=== PATIENT | male | born 1945 | race Caucasian/White ===

== ENCOUNTER 2018-07-25 11:51 | Day surgery (SDC) | payer MEDICARE ==
[2018-07-24 11:18] VITALS: BMI 29.0
[~2018-07-25 11:51] MED LIST: LACTATED RINGERS 1,000 ML IV SCH
[2018-07-25 12:23] VITALS: RESP 16; TEMP 98.2
[2018-07-25] MEDS ORDERED: LIDOCAINE 1% 20 ML VIAL (10MG/ML) FOR IV START INTRADERMA ONE (12:28)
[2018-07-25] MEDS ORDERED: PROPOFOL 10 MG/ML 20 ML VIAL IV ONE (12:45)
--- NOTE | 2018-07-25 13:05 | P.PCN ---
Date of Procedure: 07/25/18 Procedure(s) Performed: BRIEF HISTORY: Patient is a 73-year-old, pleasant, white male, scheduled for an upper endoscopy as a part of evaluation of anemia. Patient was recently started on aspirin and Plavix prior to which she wasn't willing to for 14 months. He was noted to have anemia and hence he scheduled for an upper endoscopy to evaluate further. Last EGD in October 2017 revealed small gastric ulcer. He denies any recent NSAID use. He has been on Protonix 40 mg daily.. PROCEDURE PERFORMED: Esophagogastroduodenoscopy with biopsy . PREOPERATIVE DIAGNOSIS: Meat. IV sedation per anesthesia. PROCEDURE: After informed consent was obtained, the patient was brought into the endoscopy unit. IV sedation was administered by Anesthesia under continuous monitoring. Initially the Olympus GIF-140 video endoscope was inserted into the mouth. Esophagus intubated without any difficulty. It was gradually advanced into the stomach and duodenum and carefully examined. The bulb and the second part of the duodenum appeared normal. The scope at this time was withdrawn to the stomach, adequately insufflated with air, and upon careful examination, mucosa of the antrum, had of 1 minute a superficial antral ulcer with antral gastritis and biopsies were done from this area. The body, cardia and the fundus appeared normal. The scope was then withdrawn into the esophagus. The GE junction was located at 39 cm from the incisors. The esophagus appeared normal. There were no erosions or ulcerations seen and the patient tolerated the procedure well. IMPRESSION: 1. 1 cm superficial antral ulcer with antral gastritis. 2. No evidence of esophagitis. RECOMMENDATIONS: The findings of this examination were discussed with the patient as well as his family. He was advised to follow with the biopsy results. He was advised to increase to 40 mg twice daily for 8 weeks and will plan a repeat upper endoscopy in 3 months.
[2018-07-25 13:27] VITALS: BP 143/75; PULSE 78
== END 2018-07-25 13:38 | disposition home or self-care (01) ==
LOC: ORWHC2ENDO 11:51
PROVIDERS: ATTEND Internal Medicine Gastroenterology
DX: K29.50 Unspecified chronic gastritis without bleeding (principal); K25.9 Gastric ulcer, unspecified as acute or chronic, without hemorrhage or perforation; D64.9 Anemia, unspecified; I10 Essential (primary) hypertension; I25.10 Atherosclerotic heart disease of native coronary artery without angina pectoris; E78.5 Hyperlipidemia, unspecified; K21.9 Gastro-esophageal reflux disease without esophagitis; Z79.02 Long term (current) use of antithrombotics/antiplatelets; Z79.82 Long term (current) use of aspirin; Z79.899 Other long term (current) drug therapy; Z95.5 Presence of coronary angioplasty implant and graft; Z79.891 Long term (current) use of opiate analgesic
CPT/HCPCS: 88305; 43239; J2704

== ENCOUNTER 2020-03-16 09:51 | Day surgery (SDC) | payer MEDICARE ==
[2020-03-11 08:42] VITALS: BMI 27.1
[~2020-03-16 09:51] MED LIST changes: +DEXAMETHASONE SOD PHOSPHATE 4 MG/ML 1 ML VIAL IV ONE; +FAMOTIDINE 20 MG/2 ML VIAL IV PRN; +HYDROmorphone 0.5 MG/0.5 ML SYRINGE IVP PRN; +ONDANSETRON 4 MG/2 ML VIAL IVP ONE; +ONDANSETRON 4 MG/2 ML VIAL IVP PRN; +metroNIDAZOLE-NS PMX 500 MG in SALINE 1 100ML.BAG IVPB PRN
[2020-03-16] MEDS ORDERED: LIDOCAINE 1% (10MG/ML) FOR IV START INTRADERMA ONE (10:35)
[2020-03-16] MEDS ORDERED: PHENYLEPHRINE 10 MG/ML VIAL ONE (10:41)
[2020-03-16] MEDS ORDERED: fentaNYL (PF) 50 MCG/ML 2 ML AMP ONE (10:41)
[2020-03-16] MEDS ORDERED: SUCCINYLCHOLINE CHLORIDE 100 MG/5 ML SYR IV ONE (10:41)
[2020-03-16] MEDS ORDERED: PROPOFOL 10 MG/ML 20 ML VIAL IV ONE (10:41)
[2020-03-16] MEDS ORDERED: ePHEDrine SULFATE/0.9% NACL/PF 50 MG/5 ML SYRINGE IV ONE (10:41)
[2020-03-16] MEDS ORDERED: LIDOCAINE 1% INJ 10MG/ML (20 ML MDV) ONE (10:41)
[2020-03-16] MEDS ORDERED: MIDAZOLAM 2 MG/2 ML VIAL ONE (10:41)
[2020-03-16] MEDS ORDERED: LIDOCAINE 1%-EPI 1:100,000 20 ML VIAL SQ ONE (11:11)
[2020-03-16] MEDS ORDERED: LACTATED RINGERS 1,000 ML IV ONE ×2 (11:55)
[2020-03-16] MEDS ORDERED: BACITRACIN ZINC 500 UNIT/GM OINT 28.4 GM TUBE TOPICAL ONE (12:08)
--- NOTE | 2020-03-16 12:23 | P.OP ---
Date of Procedure: 03/16/20 Preoperative Diagnosis: Left mosque skin lesion Postoperative Diagnosis: Same Procedure(s) Performed: Excision left mosque skin lesion 1.5 x 1.7 cm Local flap reconstruction left mosque defect with primary defect 1.5 x 1.7 cm and secondary defect to 2.0 x 2.3 cm Anesthesia: AVE Surgeon: Ashok Reyes Estimated Blood Loss (ml): 4 Pathology: other (Left mosque skin lesion) Condition: stable Disposition: PACU Indications for Procedure: This 74-year-old white male with a slowly enlarging left mosque skin lesion Operative Findings: Erythematous nodular skin lesion left mosque adjacent to the hairline-this is a basal cell carcinoma with negative margins on frozen section Description of Procedure: Patient was brought in the operative suite and placed in a supine position. Patient underwent induction of general anesthesia with oral endotracheal intubation without difficulty. The patient was prepped and draped using aseptic fashion. 1% lidocaine with 1 1000 epinephrine was infused subcutaneously and field block fashion. This was left to work for 7 minutes vasoconstrictive effect. The lesion was then excised from the surrounding tissue grossly entirely down to the muscular layer. This was sent for frozen section and this returned as negative margins and a basal cell carcinoma. The edges of the wound are undermined. Primary closure was not an option due to the fact that this would distort the normal tissues surrounding area and therefore a rhomboid flap was designed with the base posteriorly and therefore the fold from inferiorly. This was raised and rotated and advanced into position. The closure of the primary and secondary defects were performed with inverted interrupted 5-0 Vicryl suture and skin closed with running locking and simple interrupted 5-0 Prolene suture. Bacitracin ointment and sterile dressing was placed. The skin flap had 100% take and excellent capillary refill. The patient was then allowed to emerge from general anesthesia having tolerated procedure well was extubated in the operating suite and transferred to postop recovery area in satisfactory condition.
[2020-03-16 12:25] VITALS: TEMP 97.6
[2020-03-16 13:20] VITALS: BP 156/70; PULSE 82; RESP 16
== END 2020-03-16 13:38 | disposition home or self-care (01) ==
LOC: OR 09:51
PROVIDERS: ATTEND Otolaryngology
DX: C44.319 Basal cell carcinoma of skin of other parts of face (principal); I25.10 Atherosclerotic heart disease of native coronary artery without angina pectoris; I10 Essential (primary) hypertension; E78.5 Hyperlipidemia, unspecified; K21.9 Gastro-esophageal reflux disease without esophagitis; Z87.891 Personal history of nicotine dependence; Z79.899 Other long term (current) drug therapy; Z79.891 Long term (current) use of opiate analgesic; Z79.82 Long term (current) use of aspirin; Z95.5 Presence of coronary angioplasty implant and graft; Z96.60 Presence of unspecified orthopedic joint implant; Z82.49 Family history of ischemic heart disease and other diseases of the circulatory system; Z80.3 Family history of malignant neoplasm of breast; Z80.0 Family history of malignant neoplasm of digestive organs
CPT/HCPCS: 88305; 88331; 88332; 14040; J2250; J1100; J2370; J2405; J0690; J2001; J3010; J0330; J2704

== ENCOUNTER → 2023-04-30 | Outpatient (CLI) | payer MEDICARE ==
[2023-04-30 12:28] VITALS: BP 106/65; PULSE 79; RESP 16; TEMP 98
--- NOTE | 2023-04-30 13:53 | P.PAINPG ---
PQRS Measure Charge Sheet Comment: HISTORY OF PRESENT ILLNESS: A 77 yr old male w son at side as a referral from Dr Ghosh presents today w severe and chronic LBP > 10 yrs secondary to post laminectomy syndrome for evaluation. Pt states pain level is provoked at 6 /10 in intensity, constant, localized in the lumbar spine, predominantly axial, sharp in character w occasional shooting pain towards the BLEs. Pain is provoked by standing for periods > 5 min. Pain is alleviated by PT yrs ago which was ineffective, use of a wheelchair for ambulatory assistance, medications (Mobile 7.5/325 #90, Neurontin 600mg #120, ASA), Diclofenac gel topical, repositioning and rest. Oswestry axial pain score at 41. PMH: OA, CAD, HTN, Hyperlipidemia, GERD, MDD PSH: L Blakely Excision (2020), EGD (2018) SH: L Knee Arthroscopy, R Hip Arthroplasty, Cardioversion (2022), Colonoscopy (2021, 2014, 2009, 2007), Cervical Surgery (2019), EGD (2018), LAD Angioplasty (2017), R Wrist ORIF (2013) FH: Non contributory All: See list Meds: See list REVIEW OF ORGAN SYSTEMS: CONSTITUTIONAL: No fevers or chills. No recent weight loss. NEUROLOGICAL: + numbness and tingling along the distal extremities. No seizure disorders or headaches. MUSCULOSKELETAL: + pain PSYCHIATRIC: Denies current depression or suicidal thoughts. Physical Examinations : Constitutional : Cooperative , not in acute distress . Neurologic : Cranial nerve II to XII intact. No focal neurological deficits. Psychiatric : alert & oriented x 3. Matching mood & appropriate affect. Judgment & insight intact. Musculoskeletal : Cervical Spine Motor strength in the deltoid and biceps: Normal right side. Normal Left side Motor strength biceps and the wrist extensors: Normal right side . Normal left side Motor strength in the triceps muscle: Normal right side. Normal left side Deep tendon reflexes: Normal at the biceps. Normal at Brachioradialis. Normal at triceps Vertebral body tenderness to deep palpation over Cervical facet loading test: positive bilaterally Spurling test: positive bilaterally Neck distraction test: positive bilaterally Bria sign: positive bilaterally Lumbar spine Motor strength lower extremities ,thigh and legs 5/5 Right side , 5/5 Left side Deep tendon reflexes : Normal Knee Jerk. Normal Ankle Jerk Vertebral body tenderness over L5 Bynum Test positive L5-S1 Lumbar facet Loading Test: positive Right / positive Left Range of motion of the lumbar spine Flexion 30 degrees, extension 10 degrees Straight Leg Raise test: Left/ Right positive at degree Madina test: positive right / positive left. Severe tenderness over the Sacroiliac joint on the Right / Left sides Gaenslen test: positive bilaterally Seated flexion test: positive bilaterally. Sacral spine : Severe tenderness over the Sacroiliac joint: right side / left side Range of motion: Flexion of the lumbar spine <60 degrees Range of motion: Extension of the lumbar spine <20 degrees Gaenslen's Test positive Madina test: positive right side / left side Thigh Thrust Test Sacral Thrust Test Imaging: CT noncontrast of the lumbar spine from 02/11/2023 reviewed Assessment/ Plan : L5S1 Discectomy, R post laminectomy syndrome Recommendation of Caudal SOFIA. May need a series of injections for optimal pain relief. Risks, benefits of procedure discussed and patient verbalized understanding. Admits to anti- coagulant use or medical history of diabetes. Protocol for discontinuation/ continuation of medications remy procedure discussed. All questions answered. I have spent greater than 30 minutes on patient care today. Dr Stern was available by phone for the evaluation of this patient. The time was used to review the medical records including relevant urine studies and Prescription history (MAPs), review of the available imaging, evaluation and examination of the patient, coordination of care with the medical staff and if applicable referring physicians, as well as creation of the medical record PQRS Narrative: Smoking Status Former smoker Home Medications: Ambulatory Orders Aspirin [Adult Low Dose Aspirin EC] 81 mg PO DAILY 07/24/18 Atorvastatin [Lipitor] 40 mg PO HS 07/24/18 Gabapentin [Neurontin] 600 mg PO QID 07/24/18 Pantoprazole [Protonix] 40 mg PO DAILY 07/24/18 Potassium Chloride [Potassium Chloride ER] 10 meq PO BID 07/24/18 Venlafaxine HCl [Effexor] 75 mg PO BID 07/24/18 Doxazosin Mesylate [Cardura] 4 mg PO 1200 03/11/20 Ferrous Sulfate [Feosol] 325 mg PO DAILY 03/11/20 Furosemide [Lasix] 40 mg PO DAILY 03/11/20 HYDROcodone/APAP 7.5-325MG [Mobile 7.5-325] 1 tab PO Q6HR PRN 03/11/20 Metoprolol Succinate (ER) [Toprol Xl] 25 mg PO 1200 03/11/20 Nortriptyline [Pamelor] 25 mg PO HS 03/11/20 amLODIPine BESYLATE 10 mg PO QAM 03/11/20 Controlled Substance Measures - Controlled Substance Measures Is patient prescribed a controlled substance at discharge?: Yes When asked, does pt state using other controlled substances?: No If prescribed controlled substance>3 days was MAPS reviewed?: Prescribed <3 Days
== END ==
LOC: PNWHC3 11:34
PROVIDERS: ATTEND Specialist
DX: M96.1 Postlaminectomy syndrome, not elsewhere classified (principal); M19.90 Unspecified osteoarthritis, unspecified site; I25.10 Atherosclerotic heart disease of native coronary artery without angina pectoris; I10 Essential (primary) hypertension; E78.5 Hyperlipidemia, unspecified; K21.9 Gastro-esophageal reflux disease without esophagitis; F32.9 Major depressive disorder, single episode, unspecified; Z98.890 Other specified postprocedural states; Z87.891 Personal history of nicotine dependence; Z79.82 Long term (current) use of aspirin; Z79.899 Other long term (current) drug therapy
CPT/HCPCS: 99211

== ENCOUNTER 2023-05-30 11:05 | Day surgery (SDC) | payer MEDICARE ==
[2023-05-27 16:19] VITALS: BMI 28.8
[~2023-05-30 11:05] MED LIST changes: -DEXAMETHASONE SOD PHOSPHATE 4 MG/ML 1 ML VIAL IV ONE; -FAMOTIDINE 20 MG/2 ML VIAL IV PRN; -HYDROmorphone 0.5 MG/0.5 ML SYRINGE IVP PRN; -ONDANSETRON 4 MG/2 ML VIAL IVP ONE; -ONDANSETRON 4 MG/2 ML VIAL IVP PRN; -metroNIDAZOLE-NS PMX 500 MG in SALINE 1 100ML.BAG IVPB PRN
[2023-05-30 12:24] VITALS: TEMP 97
[2023-05-30] MEDS ORDERED: IOPAMIDOL M200 10 ML VIAL ONE (12:29)
[2023-05-30] MEDS ORDERED: methylPREDNISolone ACETATE 40 MG/ML 1 ML VIAL ONE (12:29)
--- NOTE | 2023-05-30 12:39 | P.PCN ---
Date of Procedure: 05/30/23 Procedure(s) Performed: PREOPERATIVE DIAGNOSIS: Lumbar post laminectomy syndrome. POSTOPERATIVE DIAGNOSIS: Lumbar post laminectomy syndrome. PROCEDURE: 1. Caudal epidural steroid injection under fluoroscopic guidance. (Fluoroscopy images available in the radiology department ) 2. Caudal epidurogram ANESTHESIA: Local with 1% lidocaine; 5ml . EBL: None. PROCEDURE INDICATION: The patient with neuropathic pain radiating distally returns for caudal epidural steroid injection. PROCEDURE DESCRIPTION: The patient was seen and identified in the preoperative area. Risks, benefits, complications, and alternatives were discussed with the patient. The patient agreed to proceed with the procedure and signed the consent. IV was started, and vital signs were stable. Patient was taken to the OR and time out was completed. The patient was placed in the prone position on procedure table and a pillow was placed under the abdomen to reduce lumbar lordosis. The lumbosacral area was prepped and draped in the usual sterile fashion. Critical pause was taken. Vital signs were closely monitored during the procedure. Using lateral fluoroscopy the anterior-posterior plates of the sacrum were identified and the skin and deeper tissues corresponding into sacrococcygeal ligament were anesthetized using approximately 3 mL of 1% lidocaine. Then under fluoroscopy, a 3-1/2-inch 20-gauge Tuohy epidural needle was guided through the sacrococcygeal ligament, and into the epidural space. After negative aspiration, a 2 mL of Isovue 200 contrast dye was injected with excellent epidurogram. Again after negative aspiration for CSF, blood, and with no paresthesias, then Depo-Medrol 40 mg, 2ml of 1% preservative free Lidocaine with 6 ml of preservative free normal saline(total of 10ml)solution was injected with washout of epidurogram. Needle was withdrawn intact. Skin was cleansed, and bandage was applied. COMPLICATIONS: None DISPOSITION / PLANS: The patient was placed in a supine position and transferred to the recovery area in a stable condition for observation and was discharged from the recovery room after meeting discharge criteria. Home discharge instructions given to the patient by the staff. The patient was reexamined prior to discharge. The patient will schedule a follow up in the clinic in 2-4 weeks.
--- NOTE | 2023-05-30 12:48 | FL ---
Fluoroscopy INDICATION: Pain FINDINGS: Fluoroscopy time: 14 seconds. Total dose area product (DAP) in uGy*m?, mGy*cm? (or similar): 0.12840 Images obtained: 3. IMPRESSION: 1. Documentation of fluoroscopy.
[2023-05-30 13:02] VITALS: RESP 20
[2023-05-30 13:38] VITALS: BP 173/81; PULSE 68
== END 2023-05-30 13:23 | disposition home or self-care (01) ==
LOC: ORPAIN 11:05
PROVIDERS: ATTEND Specialist
DX: M96.1 Postlaminectomy syndrome, not elsewhere classified (principal); M51.36 Other intervertebral disc degeneration, lumbar region; M79.2 Neuralgia and neuritis, unspecified; Z79.82 Long term (current) use of aspirin; Z79.899 Other long term (current) drug therapy
CPT/HCPCS: 62323; J1030; Q9966

== ENCOUNTER → 2023-06-10 | Outpatient (CLI) | payer MEDICARE ==
[2023-06-10 11:38] VITALS: BP 135/68; PULSE 69; RESP 15; TEMP 98.4
--- NOTE | 2023-06-10 11:52 | P.PAINPG ---
Subjective Progress Note Date: 06/10/23 Principal diagnosis: lumbar back pain, and leg pain Mr. Avila is a 78 -year-old pleasant male came to the [facility] pain clinic for lumbar back pain . Patient has ongoing pain for many years. Patient describes pain is aching, throbbing, constant type of pain. Pain is radiating to lower extremity sometimes up to the knee area. He is using wheelchair for walking. He had a previous caudal epidural steroid injection which was not helpful at all. Made his pain worse for a few days after the intervention procedure. Patient rated pain levels are6-7 out of 10 in severity. With the help of medications pain levels are 4-5 out of 10 in severity. Activities making pain worse. Medications, resting helping in relieving patient's pain. Patient pain some days better than others. Overall activities decreased secondary to pain. Because of the pain sometimes patient is feeling lack of sleep, interest, and energy. Denied any side effects with the medications. Denied any bowel or bladder problems at this time. Patient is using wheelchair for walking support. Patient denies any suicidal or homicidal ideations intent or plan. Patient denies any auditory or visual hallucinations. Patient denied any red flag symptoms related to pain. Objective - Vital Signs Vital signs: Intake & Output 06/09/23 06/10/23 06/10/23 18:59 06:59 18:59 Weight 83.461 kg - Exam General: Well-developed, well-nourished, no acute distress HEENT: Normocephalic, and atraumatic Neck: Supple, no neck swelling Psychiatric: Appropriate mood, and affect [employer]: No focal neurological deficits Musculoskeletal: Upper extremity: Normal strength, and range of motion. Sensation grossly intact Lower extremity: decreased range of motion secondary to pain Lumbar spine: Paravertebral tenderness: positive, healed lumbar scar Lumbar facet load test : positive Sacroiliac joint tenderness: Positive Thigh thrust test: patient refused SI joint compression test: patient refused Fabere test: not done - Constitutional Constitutional Comment(s): 13 point review of symptoms negative except as mentioned in the history of present illness. Assessment and Plan Assessment: lumbar postlaminectomy syndrome Lumbar spondylosis without myelopathy Lumbar radiculopathy Chronic pain syndrome, and myofascial pain syndrome Opiate dependent Plan: #1 Diagnoses, prognosis, and multiple treatment options including but not limited to physical therapy, interventional therapy, adjunct medication therapy, narcotic medication, and surgical options were discussed with the patient. And all questions were answered to the patient's satisfaction. #2 treatment plan agreement : Patient was thoroughly discussed regarding the azeem atment options, alternatives, and importance of exercises as tolerated. Patient clearly understood. #3 Patient was counseled on importance of regular exercise. Including shira chi, aerobic exercises as tolerated. Which helps for chronic pain, and overall well- being. #4 investigations: MAPS- reviewed , urine drug test- not done #5 diagnostic tests: none at this time #6 consultation : none at this time # 7 interventional procedures:discussed with bilateral SI joint injection. Procedure, complications, alternatives discussed with the patient.patient refused any intervention procedures at this time #8 medications none from the pain clinic #9 morphine milligrams equivalents dose ( MME) per day: 0 from the pain clinic # 10 TENS unit's, and percussion massage device #11 disposition: recommended to follow up with pain clinic as needed in future Time with Patient: Less than 30 PQRS Measure Charge Sheet Measure #226: Tobacco Use: Screen & Cessation Intervention: Pt not a tobacco user Measure #111: Pneumonia Vaccination: Pneumococcal vaccine administered or previously received Measure #47: Advance Care Plan: Advance care planning discussed & documented, plan or surrogate given Measure #412: Opioid Treatment Agreement: Documented signed opioid trtmnt agreemnt min once during opioid trtmnt Measure #408: Opioid Therapy Follow-up Evaluation: Patient had f/u eval minimum every 3 months during opioid therapy Measure #317: Preventitive Care & Scrn High Bld Press & F/U: Pre-hypertensive or hypertensive BP documented, pt will f/u with PCP Measure #128: Body Mass Index (BMI) Screening & Follow-up: BMI documented within normal parameters Measure #131: Pain Assessment & Follow-up: Pain positive & plan documented Measure #431: Unhealthy Alcohol Use Preventative Care & Scrn: Patient not identified as an unhealthy alcohol user - Pain Location Bilateral Lower Back Non-Pharmacological Interventions: Heat, Ice, Inactivity, Position/Reposition Pharmacological Interventions: Epidural, Scheduled Medication PQRS Narrative: Smoking Status Former smoker Hx Alcohol Use (MH) No Home Medications: Ambulatory Orders Aspirin [Adult Low Dose Aspirin EC] 81 mg PO QAM 07/24/18 Atorvastatin [Lipitor] 40 mg PO HS 07/24/18 Gabapentin [Neurontin] 600 mg PO QID 07/24/18 Pantoprazole [Protonix] 40 mg PO QAM 07/24/18 Potassium Chloride [Potassium Chloride ER] 10 meq PO BID 07/24/18 Venlafaxine HCl [Effexor] 75 mg PO BID 07/24/18 Doxazosin Mesylate [Cardura] 4 mg PO 1200 03/11/20 Furosemide [Lasix] 40 mg PO QAM 03/11/20 HYDROcodone/APAP 7.5-325MG [[place] 7.5-325] 1 tab PO Q6HR PRN 03/11/20 Metoprolol Succinate (ER) [Toprol Xl] 25 mg PO 1200 03/11/20 Nortriptyline [Pamelor] 25 mg PO HS 03/11/20 Amiodarone [Cordarone] 200 mg PO QAM 05/27/23 Controlled Substance Measures - Controlled Substance Measures Is patient prescribed a controlled substance at discharge?: No
== END ==
LOC: PNWHC3 10:25
PROVIDERS: ATTEND Anesthesiology
DX: M96.1 Postlaminectomy syndrome, not elsewhere classified (principal); M47.26 Other spondylosis with radiculopathy, lumbar region; G89.4 Chronic pain syndrome; F11.20 Opioid dependence, uncomplicated; M79.18 Myalgia, other site; Z87.891 Personal history of nicotine dependence
CPT/HCPCS: 99211